=== PATIENT | female | born 1985 | race African-American/Black ===

== ENCOUNTER 2016-06-08 12:16 | Emergency (ER) | payer OTHER ==
[~2016-06-08] VITALS: Ht 170.1 cm; Wt 108.9 kg
[~2016-06-08 12:16] MED LIST: AMOXICILLIN500 MG PO; BACTRIM DS 8001 TA1 PO; CEPHALEXIN500 M1 PO; CIPROFLOXACIN500 MG PO; CLARITIN-D 10 M1 T21 PO; CLARITIN10 MG PO; FLONASE ALLERG9.9 ML NAS; HYDROCODONE BIT1 T11 PO; IBU800 MG PO; IBUPROFEN800 MG PO; KEFLEX500 M1 PO; KEFLEX500 MG PO; LIDEX 0.05% CRE15 GM T; NEXIUM40 MG; NEXIUM40 MG PO; NKHM; PERCOCET 325 MG1 TA2 PO; PREDNICOT20 MG PO; PREDNISONE10 MG PO; PRENATAL1 TA1; PRENATAL1 TA4 PO; ROBITUSSIN AC 110 ML PO; SEPTRA DS 800 M1 TAB PO; TESSALON PERLE100 M1 PO; TOBREX OPHTH S2.5 ML OPH; TRAMADOL HCL50 MG PO; VICODIN 500 MG-1 TAB PO; Vicodin 5/500 505 MG PO; ZITHROMAX Z PA250 MG PO
[2016-06-08] MEDS ORDERED: CYCLOBENZAPRINE10 MG PO (13:51)
[2016-06-08] MEDS ORDERED: PREDNISONE50 MG PO (13:51)
[2016-07-18] MEDS ORDERED: PREDNISONE10 MG PO (18:38)
== END 2016-06-08 14:03 | disposition home or self-care (01) ==
LOC: ED 12:16
DX: M54.42 Lumbago with sciatica, left side (principal); F17.200 Nicotine dependence, unspecified, uncomplicated

== ENCOUNTER 2016-08-26 20:27 | Emergency (ER) | payer OTHER ==
[~2016-08-26] VITALS: Ht 170.1 cm; Wt 113.4 kg
[~2016-08-26 20:27] MED LIST changes: +CYCLOBENZAPRINE10 MG PO; +PREDNISONE50 MG PO
[2016-08-26 21:00] LABS: BILIRUBIN NEGATIVE (NEGATIVE); BLOOD 1+ (NEGATIVE); CLARITY CLOUDY (CLEAR); COLOR YELLOW (YELLOW); GLUCOSE NEGATIVE (NEGATIVE); KETONE NEGATIVE (NEGATIVE); LEUKO ESTERASE 3+ (NEGATIVE); NITRITE NEGATIVE (NEGATIVE); PH 7.5 (5.0-9.0); PROTEIN 1+ (NEGATIVE); SPECIFIC GRAVITY 1.015 (1.005-1.030)
[2016-08-26 21:06] LABS: BACTERIA 4+; EPITHELIAL CELLS 50-55; RBC TNTC rbc/hpf (0-2); URINE REFLEX COMMENT YES (NO); WBC TNTC wbc/hpf (0-5)
[2016-08-26] MEDS ORDERED: DOXYCYCLINE HY100 M3 PO (21:29)
[2016-08-26] MEDS ORDERED: CEFUROXIME AXE250 MG PO (21:29)
== END 2016-08-26 21:41 | disposition home or self-care (01) ==
LOC: ED 20:27
PROVIDERS: Student in an Organized Health Care Education/Training Program
DX: N30.01 Acute cystitis with hematuria (principal); N73.9 Female pelvic inflammatory disease, unspecified

== ENCOUNTER → 2016-09-23 | Outpatient (CLI) | payer OTHER ==
[~2016-09-23] MED LIST changes: +CEFUROXIME AXE250 MG PO; +CIPROFLOXACIN250 MG PO; +DOXYCYCLINE HY100 M3 PO
[2016-09-23 10:33] LABS: BASO # 0.1 10*3/uL (0.0-0.1); BASO % 0.5 % (0.0-1.0); EOS # 0.3 10*3/uL (0.0-0.4); EOS % 2.4 % (1.0-4.0); HEMATOCRIT 40.9 % (37.0-47.0); HEMOGLOBIN 13.5 g/dl (12.0-16.0); LYMPH # 4.3 10*3/uL (1.3-4.4); LYMPH % 36.2 % (27.0-41.0); MEAN CELL VOLUME 86.1 fl (81.0-99.0); MEAN CORPUSCULAR HGB 28.4 pg (27.0-31.0); MEAN PLATELET VOLUME 10.6 fl (9.6-12.3); MONO # 0.6 10*3/uL (0.1-1.0); MONO % 5.3 % (3.0-9.0); NEUT # 6.6 10*3/uL (2.3-7.9); NEUT % 55.3 % (47.0-73.0); PLATELET COUNT AUTOMATED 233 10*3/uL (130-400); RED BLOOD COUNT 4.75 10*6/uL (4.10-5.10); RED CELL DISTRI WIDTH 14.6 % (0-14.5); WHITE BLOOD COUNT 11.9 10*3/uL (4.8-10.8)
== END | disposition home or self-care (01) ==
LOC: LAB 09:20
PROVIDERS: Obstetrics & Gynecology
DX: N92.0 Excessive and frequent menstruation with regular cycle (principal)

== ENCOUNTER → 2016-09-29 | Day surgery (SDC) | payer OTHER ==
[~2016-09-29] VITALS: Ht 175.2 cm; Wt 113.4 kg
--- NOTE | ~2016-09-29 | WRIGHTHP ---
[place], [place] PATIENT HISTORY AND PHYSICAL EXAM NAME: [id number] UNIT #: [id number] ROOM: DOCTOR: RO HERNANDEZ MD BIRTHDATE: [birth year] DOS: 09/29/2016 DATE OF PLANNED SURGERY: 09/29/2016 PROCEDURE: NovaSure, D and C and hysteroscopy. HISTORY OF PRESENT ILLNESS: This patient is a 31-year-old -[place] female whose last menstrual period was 08/31/2016 who presented on 09/17/2016 having her periods being quite heavy and lasting about 15 days each. The patient had been seen by Dr. Nicholson about a year and a half ago and she had an eloquent note detailing the patient's history of significant hypermenorrhea that has not responded to Mirena IUD, several types control pills, etc. The patient is status post tubal ligation and had even discussed NovaSure ablation with Dr. Nicholson in the past if she had no success with the last control utilized. The patient did not have any success and has continued to have these problems, which she states actually started at the time of her own menses. She is quite ready for the ablation at this point. The risks and benefits, indications, potential complications, and alternatives were given, understanding stated and she did sign the consent. PAST MEDICAL HISTORY: Reveals 2 pregnancies and 2 vaginal deliveries. She has had a history of childhood asthma, history of abnormal Pap and actually was treated with a LEEP procedure in the past. Her most recent Pap smear was negative. The patient has had a cholecystectomy in 2004. She also states that she has had a LEEP in 2005 and 2010 as well as a tubal ligation in 2011. SOCIAL HISTORY: She does smoke approximately half pack per day. Does not drink. She utilizes an EpiPen p.r.n. for bee stings and that is the only medication that she takes even on an as needed basis. REVIEW OF SYSTEMS: Stable. FAMILY HISTORY: Unknown as she is adopted. PHYSICAL EXAMINATION: GENERAL: Reveals a pleasant black female, 5 feet, 7 inches, 250 pounds, BMI is 39.2. VITAL SIGNS: Blood pressure 122/64 in no apparent distress. HEENT: Grossly intact. NECK: Grossly intact. LUNGS: Grossly intact. CARDIAC: Grossly intact. BREASTS: Grossly intact. ABDOMEN: Grossly intact. EXTREMITIES: Grossly intact. NEUROLOGIC: Grossly intact. GENITOURINARY: External genitalia, vagina, cervix normal. The uterus is anteverted and anteflexed, otherwise normal in size and configuration and normal per previous ultrasound as well. The adnexa were negative. RECTAL: Deferred. [place], [place] PATIENT HISTORY AND PHYSICAL EXAM NAME: JOSE A SAN UNIT #: [id number] ROOM: DOCTOR: RO HERANNDEZ MD BIRTHDATE: [birth year] ASSESSMENT: A 31-year-old -[place] female is that of hypermenorrhea longstanding, failed multiple conservative therapies and also prolonged menses up to 15 days per cycle. To that end, on 09/29/2016, the patient will undergo a hysteroscopy, D and C, and NovaSure endometrial ablation. RO HERNANDEZ MD CM:HISPHYS:PATIENT HISTORY AND PHYSICAL EXAMINATION [id number] RO HERNANDEZ MD 09/23/16 1556 interface
--- NOTE | ~2016-09-29 | O ---
[place], [place] OPERATIVE NOTE NAME: JOSE A SAN UNIT #: [id number] ROOM: DOCTOR: RO GONZALES MD BIRTHDATE: [birth year] DOS: 09/29/2016 PREOPERATIVE DIAGNOSES: Prolonged chronic hypermenorrhea, dysmenorrhea, anemia and failed multiple conservative therapies. POSTOPERATIVE DIAGNOSES: Prolonged chronic hypermenorrhea, dysmenorrhea, anemia and failed multiple conservative therapies. OPERATION: Hysteroscopy, D and C, and NovaSure ablation. SURGEON: Dr. Ro Gonzales and Dr. Caruso. ANESTHESIA: MAC with paracervical block, 2% Nesacaine, 5 mL each at 4 and 7 o'clock respectively. ESTIMATED BLOOD LOSS: Minimal. REPLACEMENTS: IV fluids and Toradol. COMPLICATIONS: There were no complications. CONDITION: The patient's condition to recovery stable. OPERATIVE SUMMARY: The patient was taken to the operating room in supine position. MAC anesthesia, lithotomy position, prepped and draped in routine manner. Bladder was straight catheterized for about 100 mL. Cervix was visualized and grasped, paracervical block as noted above placed, followed by sounding the uterus to between 8.5 and 9 cm. The cervix was progressively dilated followed by placement of the hysteroscope, which revealed a shaggy endometrium consistent with the patient starting her period today. There were no other atypicalities within the intrauterine cavity, the fundus, cornual region, body of the uterus or lower uterine segment. The hysteroscope was removed. A thorough curettage was performed followed by placement of the NovaSure device and after adjusting for the appropriate depth, width and noting that the cavity was intact, we proceeded with NovaSure endometrial ablation without complication. We then removed the device and repeated our hysteroscopic exam of the intrauterine cavity revealing an intact and well ablated endometrium. The hysteroscope was removed, tenaculum removed and noting good hemostasis, the patient was cleaned off, taken out of lithotomy position, awakened and transferred to recovery in satisfactory condition. [place], [place] OPERATIVE NOTE NAME: JOSE A SAN UNIT #: [id number] ROOM: DOCTOR: RO GONZALES MD BIRTHDATE: [birth year] RO GONZALES MD CM:OPRECORD:OPERATIVE NOTE [id number] RO GONZALES MD 09/29/16 1216 interface
[2016-09-29 09:43] VITALS: BP 125/61
[2016-09-29 11:45] VITALS: BP 93/49
[2016-09-29 12:00] VITALS: BP 104/50
[2016-09-29 12:15] VITALS: BP 114/51
[2016-09-29 12:36] VITALS: BP 110/62
== END | disposition home or self-care (01) ==
LOC: SDC 09-23 09:30
DX: N92.0 Excessive and frequent menstruation with regular cycle (principal); N94.6 Dysmenorrhea, unspecified; D64.9 Anemia, unspecified; J45.909 Unspecified asthma, uncomplicated; F17.210 Nicotine dependence, cigarettes, uncomplicated

== ENCOUNTER 2016-11-20 11:24 | Emergency (ER) | payer OTHER ==
[~2016-11-20] VITALS: Ht 170.1 cm; Wt 113.4 kg
[2016-11-20] MEDS ORDERED: DELTASONE20 M1 PO (12:19)
== END 2016-11-20 12:35 | disposition home or self-care (01) ==
LOC: ED 11:24
DX: L30.9 Dermatitis, unspecified (principal); F17.200 Nicotine dependence, unspecified, uncomplicated; Z98.51 Tubal ligation status; Z98.890 Other specified postprocedural states

== ENCOUNTER 2017-04-30 11:57 | Emergency (ER) | payer OTHER ==
[~2017-04-30] VITALS: Ht 170.1 cm; Wt 129.3 kg
[~2017-04-30 11:57] MED LIST changes: +DELTASONE20 M1 PO
[2017-04-30] MEDS ORDERED: PREDNISONE10 MG PO (12:46)
[2017-04-30] MEDS ORDERED: Tobrex Ophth S2.5 ML OPH (12:46)
[2017-04-30] MEDS ORDERED: FLONASE ALLERG9.9 ML NAS (12:46)
[2017-04-30] MEDS ORDERED: ROBITUSSIN DM 105 ML PO (12:46)
[2017-04-30] MEDS ORDERED: CLARITIN10 MG PO (12:46)
== END 2017-04-30 14:19 | disposition home or self-care (01) ==
LOC: ED 11:57
DX: J01.90 Acute sinusitis, unspecified (principal); H10.31 Unspecified acute conjunctivitis, right eye; R03.0 Elevated blood-pressure reading, without diagnosis of hypertension; F17.200 Nicotine dependence, unspecified, uncomplicated

== ENCOUNTER 2017-06-15 07:07 | Emergency (ER) | payer OTHER ==
[~2017-06-15] VITALS: Ht 170.1 cm; Wt 113.4 kg
[~2017-06-15 07:07] MED LIST changes: +ROBITUSSIN DM 105 ML PO; +Tobrex Ophth S2.5 ML OPH
[2017-06-15] MEDS ORDERED: TAMIFLU 75MG CA75 MG PO (07:23)
== END 2017-06-15 07:30 | disposition home or self-care (01) ==
LOC: ED 07:07
DX: J11.1 Influenza due to unidentified influenza virus with other respiratory manifestations (principal); F17.210 Nicotine dependence, cigarettes, uncomplicated; Z90.89 Acquired absence of other organs

== ENCOUNTER 2018-04-25 14:44 | Emergency (ER) | payer OTHER ==
[~2018-04-25] VITALS: Ht 170.1 cm; Wt 99.8 kg
[~2018-04-25 14:44] MED LIST changes: +TAMIFLU 75MG CA75 MG PO
[2018-04-25 17:31] LABS: BASO # 0.1 10*3/uL (0.0-0.1); BASO % 0.6 % (0.0-1.0); EOS # 0.2 10*3/uL (0.0-0.4); EOS % 1.9 % (1.0-4.0); HEMATOCRIT 42.9 % (37.0-47.0); HEMOGLOBIN 13.8 g/dl (12.0-16.0); LYMPH # 3.8 10*3/uL (1.3-4.4); LYMPH % 34.9 % (27.0-41.0); MEAN CELL VOLUME 88.6 fl (81.0-99.0); MEAN CORPUSCULAR HGB 28.5 pg (27.0-31.0); MEAN CORPUSCULAR HGB CONC 32.2 g/dl (33.0-37.0); MEAN PLATELET VOLUME 10.6 fl (9.6-12.3); MONO # 0.6 10*3/uL (0.1-1.0); MONO % 5.6 % (3.0-9.0); NEUT # 6.2 10*3/uL (2.3-7.9); NEUT % 56.7 % (47.0-73.0); PLATELET COUNT AUTOMATED 239 10*3/uL (130-400); RED BLOOD COUNT 4.84 10*6/uL (4.10-5.10); RED CELL DISTRI WIDTH 13.8 % (0-14.5)
[2018-04-25 17:50] LABS: ALBUMIN 3.4 gm/dl (3.1-4.5); ALKALINE PHOSPHATASE 103 U/L (45-117); BUN 6 mg/dl (7-24); CHLORIDE 108 mmol/L (98-107); CREATININE 0.71 mg/dL (0.55-1.02); POTASSIUM 3.2 mmol/L (3.5-5.1); SGOT/AST 10 IU/L (3-35); SGPT/ALT 19 U/L (12-78); SODIUM 142 mmol/L (136-145); TOTAL PROTEIN 7.6 gm/dL (6.4-8.2)
[2018-04-25] MEDS ORDERED: TESSALON PERLE100 M1 PO (18:16)
[2018-04-25] MEDS ORDERED: ZITHROMAX250 MG PO (18:16)
== END 2018-04-25 18:19 | disposition home or self-care (01) ==
LOC: ED 14:44
PROVIDERS: Physician Assistant
DX: J18.9 Pneumonia, unspecified organism (principal); J45.909 Unspecified asthma, uncomplicated; F17.200 Nicotine dependence, unspecified, uncomplicated

== ENCOUNTER 2019-10-11 10:08 | Emergency (ER) | payer OTHER ==
[~2019-10-11] VITALS: Ht 170.1 cm; Wt 104.3 kg
[~2019-10-11 10:08] MED LIST changes: +ZITHROMAX250 MG PO
== END 2019-10-11 11:18 | disposition home or self-care (01) ==
LOC: ED 10:08
DX: L55.1 Sunburn of second degree (principal); J45.909 Unspecified asthma, uncomplicated; Z87.891 Personal history of nicotine dependence

== ENCOUNTER 2022-06-02 17:29 | Emergency (ER) | payer OTHER ==
[~2022-06-02] VITALS: Ht 170.1 cm; Wt 117.9 kg
[2022-06-02] MEDS ORDERED: PENICILLIN-VK500 MG PO (18:34)
== END 2022-06-02 18:37 | disposition home or self-care (01) ==
LOC: ED 17:29
DX: K04.7 Periapical abscess without sinus (principal); Z90.89 Acquired absence of other organs; Z98.51 Tubal ligation status; Z98.890 Other specified postprocedural states